=== PATIENT | male | born 1955 | race Caucasian/White ===

== ENCOUNTER 2016-11-04 09:00 | Day surgery (SDC) | payer BC ==
[2016-11-04 09:17] VITALS: TEMP 98.4
[2016-11-04 09:37] LABS: Mean Platelet Volume 6.5
[2016-11-04 09:41] LABS: INR 1.2 (<1.1); Prothrombin Time 11.8 sec (9.0-12.0)
--- NOTE | 2016-11-04 10:57 | XR ---
EXAMINATION TYPE: XR chest 1V DATE OF EXAM: 11/04/2016 10:50 AM COMPARISON: NONE HISTORY: Status post left-sided thoracentesis. TECHNIQUE: Single AP portable frontal upright view of the chest is obtained. FINDINGS: There is persistent small left pleural effusion after thoracentesis with associated basila r atelectasis and/or infiltrate. No sizable pneumothorax is evident after left-sided thoracentesis. R ight lung is clear. The cardiac silhouette size is upper limits of normal with atherosclerotic thora cic aorta. The osseous structures are intact. IMPRESSION: No sizable pneumothorax after left-sided thoracentesis.
[2016-11-04 11:14] VITALS: RESP 18
[2016-11-04 11:16] VITALS: BP 151/88; PULSE 58
[2016-11-04 15:10] LABS: RBC, Body Fluid 64100 /uL
--- NOTE | 2016-11-04 15:22 | US ---
EXAMINATION TYPE: US thoracentesis DATE OF EXAM: 11/04/2016 10:38 AM COMPARISON: Pleural effusion HISTORY: Pleural effusion. FINDINGS: Maximal barrier technique was utilized. The skin overlying a suitable pocket of fluid was localized and the overlying skin prepped and draped. Lidocaine was used for local anesthesia. Ultras ound was used with sterile technique. A 5 M[place]ese catheter over guide needle was advanced into the pl eural fluid collection using ultrasound guidance and the catheter advanced, needle removed. Approxim ately 0.85 liter(s) of serous sanguinous fluid was removed. Catheter was withdrawn and hemostasis ac hieved. There is no immediate complication. The patient discharged in stable condition without comp lication. IMPRESSION: STATUS POST ULTRASOUND GUIDED THORACENTESIS, POST PROCEDURE CHEST X-RAY PENDING. THIS ND OCEDURE WAS PERFORMED BY THE UNDERSIGNED. Specimen sent for laboratory analysis.
== END 2016-11-04 11:17 | disposition home or self-care (01) ==
LOC: RADPROMAIN 09:00
PROVIDERS: ATTEND Internal Medicine
DX: J90 Pleural effusion, not elsewhere classified (principal); E66.9 Obesity, unspecified; Z87.891 Personal history of nicotine dependence; Z79.2 Long term (current) use of antibiotics
CPT/HCPCS: 32555; 36415; 71010; 82042; 82945; 83615; 84157; 85049; 85610; 87070; 87075; 87102; 87116; 87205; 87206; 88108; 88305; 88341; 88342; 89050